=== PATIENT | female | born 1995 | race Caucasian/White ===

== ENCOUNTER 2016-12-23 20:53 | Emergency (ER) | payer SELFPAY ==
[2016-12-23 22:23] LABS: Basophils % (Auto) 0.3 % (0.0-1.8); Eosinophils % (Auto) 2.5 % (0.0-4.3); Hematocrit 37.3 % (30.3-42.9); Mean Corpuscular HGB Conc 32 % (30-34); Mean Corpuscular Volume 80 fl (79-97); Platelet Count 218 K/mm3 (140-440); Red Blood Count 4.69 M/mm3 (3.65-5.03); Red Cell Distribution Width 16.2 % (13.2-15.2); White Blood Count 8.9 K/mm3 (4.5-11.0)
[2016-12-23 22:37] LABS: Albumin 4.3 g/dL (3.9-5); Albumin/Globulin Ratio 1.3 %; Alkaline Phosphatase 81 units/L (35-129); Blood Urea Nitrogen 13 mg/dL (7-17); Calcium 9.2 mg/dL (8.4-10.2); Carbon Dioxide 22 mmol/L (22-30); Chloride 102.4 mmol/L (98-107); Glucose 83 mg/dL (65-100); Lipase 19 units/L (13-60); Sodium 138 mmol/L (137-145); Total Protein 7.7 g/dL (6.3-8.2)
[2016-12-23 22:57] LABS: Alanine Aminotransferase 11 units/L (7-56); Anion Gap 18 mmol/L; Potassium 4.3 mmol/L (3.6-5.0)
[2016-12-23 23:05] LABS: Mean Corpuscular Hemoglobin 26 pg (28-32)
[2016-12-23 23:09] LABS: Bilirubin,Urine NEG (Negative); Blood,Urine MOD (Negative); Ketones,Urine NEG (Negative); Leukocyte Esterase,Urine NEG (Negative); Mucus,Urine FEW /HPF; Nitrite,Urine NEG (Negative); Protein,Urine <15 mg/dL mg/dL (Negative); Urobilinogen,Urine < 2.0 mg/dL (<2.0)
--- NOTE | 2016-12-24 03:35 | Ultrasound Report ---
FINAL REPORT PROCEDURE: US PELVIC COMPLETE TECHNIQUE: Real-time transabdominal sonography in multiple planes of pelvis was performed with image documentation. This examination was performed without Doppler. Vascular abnormalities, including ovarian torsion, will not be detectable without Doppler evaluation. CPT 16508 HISTORY: rlq abd pain COMPARISON: No prior studies are available for comparison. FINDINGS: UTERUS Size: 6.7 x 3.8 x 5.3 cm. Endometrial thickness: 8.8 mm. Orientation: anteverted. Cervix: Normal. Fibroids/masses: None. RIGHT Ovary: 1.8 x 1.6 x 1.4 cm. Appearance: Normal. LEFT Ovary: 2.4 x 1.4 x 2.5 cm. Appearance: Normal. Pelvic fluid: None. Other: None. IMPRESSION: Normal Examination
--- NOTE | 2016-12-24 03:35 | Ultrasound Report ---
FINAL REPORT PROCEDURE: US PELVIC TRANSVAGINAL TECHNIQUE: Real-time transvaginal sonography in multiple planes of pelvis was performed with image documentation. This examination was performed without Doppler. Vascular abnormalities, including ovarian torsion, will not be detectable without Doppler evaluation. HISTORY: rlq abd pain COMPARISON: No prior studies are available for comparison. FINDINGS: UTERUS Size: 6.7 x 3.8 x 5.3 cm. Endometrial thickness: 8.8 mm. Orientation: anteverted. Cervix: Normal. Fibroids/masses: None. RIGHT Ovary: 1.8 x 1.6 x 1.4 cm. Appearance: Normal. LEFT Ovary: 2.4 x 1.4 x 2.5 cm. Appearance: Normal. Pelvic fluid: None. Other: None. IMPRESSION: Normal Examination
[2016-12-24] MEDS ORDERED: TORADOL IM ONE (03:37)
[2016-12-24] MEDS ORDERED: ULTRAM PO ONE (03:37)
[2016-12-24 04:29] VITALS: BP 117/74
--- NOTE | 2016-12-24 05:10 | Emergency Department Report ---
ED Abdominal Pain HPI - General Chief Complaint: Abdominal Pain Stated Complaint: ABD PAIN Time Seen by Provider: 12/24/16 03:05 Source: patient Mode of arrival: Ambulatory Limitations: No Limitations - History of Present Illness Initial Comments: 21 year old female withPast medical history presents after complaining of abdominal pain since this a.m. Patient points to her suprapubic area as area of pain. Pain is constant but fluctuates in intensity and sharp in nature. Pain started before her menstrual cycle yesterday. She denies nausea, vomiting , discharge, fever, or dysuria. Normal bowel movement today. Patient also discusses concern and she has not been a regular for the past 2 years. PATHOLOGY COLLECTOR none Severity scale (0 -10): 0 - Related Data Previous Rx's Medication Instructions Recorded Last Taken Type Ibuprofen [Motrin] 800 mg PO Q8HR PRN #30 tablet 12/24/16 Unknown Rx traMADol [Ultram 50 MG tab] 50 mg PO Q6HR PRN #20 tablet 12/24/16 Unknown Rx Allergies Allergy/AdvReac Type Severity Reaction Status Date / Time No Known Allergies Allergy Unverified 12/23/16 21:28 ED Review of Systems ROS: Stated complaint: ABD PAIN Other details as noted in HPI Comment: All other systems reviewed and negative Other: Constitutional: No fevers chills or weight loss Eyes: No eye pain visual changes or discharge ENT: No ear pain or throat pain Neck: Denies pain Respiratory: Denies cough wheezing shortness of breath Cardiovascular: Denies chest pain, palpitations, syncope GI: As per HPI : Denies dysuria Musculoskeletal: Denies back pain Skin: Denies rash, lesions, erythema Neurologic: Denies headache, numbness, weakness Psychiatric: Denies suicidal ideation, hallucinations ED Past Medical Hx - Past Medical History Previous Medical History?: No - Surgical History Additional Surgical History: jaw - Social History Smoking Status: Never Smoker Substance Use Type: None - Medications Home Medications: Home Medications Medication Instructions Recorded Confirmed Last Taken Type Ibuprofen [Motrin] 800 mg PO Q8HR PRN #30 tablet 12/24/16 Unknown Rx traMADol [Ultram 50 MG tab] 50 mg PO Q6HR PRN #20 tablet 12/24/16 Unknown Rx ED Physical Exam - General Limitations: No Limitations - Other Other exam information: General: No limitations, patient is alert in no acute distress Head exam: Atraumatic, normocephalic Eyes exam: Normal appearance ENT: Moist mucous membrane, normal oropharynx Neck exam: Normal inspection, full range of motion Respiratory exam: Clear to auscultation bilateral, no wheezes, rales, crackles Cardiovascular: Normal rate and rhythm, normal heart sounds Abdomen: Soft, nondistended, suprapubic tenderness greatest in the left lower quadrant, with normal bowel sounds, no rebound, or guarding Extremity: Full range of motion normal inspection no deformity Back: Normal Inspection, full range of motion, no tenderness Neurologic: Alert, oriented x3, cranial nerves intact, no motor or sensory deficit Psychiatric: normal affect, normal mood Skin: Warm, dry, intact ED Course Vital Signs 12/23/16 12/24/16 12/24/16 21:30 04:28 04:33 Temperature 99.1 F 98 F Pulse Rate 65 78 Respiratory 18 16 16 Rate Blood Pressure 109/63 Blood Pressure 117/74 [Left] O2 Sat by Pulse 99 100 100 Oximetry ED Medical Decision Making - Lab Data Result diagrams: 12/23/16 22:02 12/23/16 22:02 Lab Results 12/23/16 12/23/16 12/23/16 Range/Units 22:02 22:02 22:02 WBC 8.9 (4.5-11.0) K/mm3 RBC 4.69 (3.65-5.03) M/mm3 Hgb 12.0 (10.1-14.3) gm/dl Hct 37.3 (30.3-42.9) % MCV 80 (79-97) fl MCH 26 L (28-32) pg MCHC 32 (30-34) % RDW 16.2 H (13.2-15.2) % Plt Count 218 (140-440) K/mm3 Lymph % (Auto) 25.2 (13.4-35.0) % [place] % (Auto) 9.3 H (0.0-7.3) % Eos % (Auto) 2.5 (0.0-4.3) % Baso % (Auto) 0.3 (0.0-1.8) % Lymph # 2.2 (1.2-5.4) K/mm3 [place] # 0.8 (0.0-0.8) K/mm3 Eos # 0.2 (0.0-0.4) K/mm3 Baso # 0.0 (0.0-0.1) K/mm3 Seg Neutrophils % 62.7 (40.0-70.0) % Seg Neutrophils # 5.6 (1.8-7.7) K/mm3 Sodium 138 (137-145) mmol/L Potassium 4.3 (3.6-5.0) mmol/L Chloride 102.4 (98-107) mmol/L Carbon Dioxide 22 (22-30) mmol/L Anion Gap 18 mmol/L BUN 13 (7-17) mg/dL Creatinine 0.5 L (0.7-1.2) mg/dL Estimated GFR > 60 ml/min BUN/Creatinine Ratio 26.00 % Glucose 83 (65-100) mg/dL Calcium 9.2 (8.4-10.2) mg/dL Total Bilirubin 0.40 (0.1-1.2) mg/dL AST 27 (5-40) units/L ALT 11 (7-56) units/L Alkaline Phosphatase 81 (35-129) units/L Total Protein 7.7 (6.3-8.2) g/dL Albumin 4.3 (3.9-5) g/dL Albumin/Globulin Ratio 1.3 % Lipase 19 (13-60) units/L Urine Color Yellow (Yellow) Urine Turbidity Clear (Clear) Urine pH 5.0 (5.0-7.0) Ur Specific [place] 1.024 (1.003-1.030) Urine Protein <15 mg/dl (Negative) mg/dL Urine Glucose (UA) Neg (Negative) mg/dL Urine Ketones Neg (Negative) mg/dL Urine Blood Mod (Negative) Urine Nitrite Neg (Negative) Urine Bilirubin Neg (Negative) Urine Urobilinogen < 2.0 (<2.0) mg/dL Ur Leukocyte Esterase Neg (Negative) Urine WBC (Auto) 3.0 (0.0-6.0) /HPF Urine RBC (Auto) 3.0 (0.0-6.0) /HPF U Epithel Cells (Auto) 1.0 (0-13.0) /HPF Urine Mucus Few /HPF Urine HCG, Qual Negative (Negative) Wet prep negative see chlamydia pending - Radiology Data Radiology results: report reviewed Transvaginal says pelvic ultrasound: Normal examination. - Medical Decision Making No acute abnormality identified during evaluation in the ED. Patient is on her menstrual cycle and suprapubic pain. Patient diagnosed with dysmenorrhea and will be encouraged to follow-up with PATHOLOGY COLLECTOR. Patient provided a copy of her ultrasound report for follow-up Critical Care Time: No Critical care attestation.: If time is entered above; I have spent that time in minutes in the direct care of this critically ill patient, excluding procedure time. ED Disposition Clinical Impression: Dysmenorrhea, Lower abdominal pain Disposition: TO HOME OR SELFCARE Is pt being admited?: No Does the pt Need Aspirin: No Condition: Stable Instructions: Dysmenorrhea (ED) Additional Instructions: Follow up with the PATHOLOGY COLLECTOR doctor provided. Take the copy of the ultrasound to doctor for follow-up. Your gonorrhea and chlamydia tests are pending and take approximately 3-4 days result. You may obtain results in medical records with a photo ID. You may also obtain results through the follow-up doctor office via medical record request. Venus un seguimiento con mdico PATHOLOGY COLLECTOR. Lleve la copia del ultrasonido al mdico para el seguimiento. Lauren pruebas de gonorrea y clamidia estn pendientes y tardan aproximadamente 3-4 hernandez en resultado. Puede obtener resultados en los registros mdicos con saurav identificacin con foto. Tambin puede obtener los resultados a travs de la oficina de seguimiento del mdico a travs de la solicitud de registro mdico. Prescriptions: Ibuprofen [Motrin] 800 mg PO Q8HR PRN #30 tablet PRN Reason: Pain traMADol [Ultram 50 MG tab] 50 mg PO Q6HR PRN #20 tablet PRN Reason: Pain Referrals: FRANCO LYN MD [Staff Physician] - 3-5 Days Time of Disposition: 05:29
== END 2016-12-24 05:42 | disposition home or self-care (01) ==
LOC: ED 20:53
DX: N94.6 Dysmenorrhea, unspecified (principal)
CPT/HCPCS: 36415; 76830; 76856; 80053; 81001; 81025; 83690; 85025; 87210; 87591; 96372; 99284; J1885